=== PATIENT | male | born 1995 | race Caucasian/White ===

== ENCOUNTER 2017-07-03 00:36 | Emergency (ER) | payer OTHER ==
[2017-07-03 01:14] VITALS: BP 158/88; PULSE 77; TEMP 99.3; BMI 31.8
--- NOTE | 2017-07-03 01:25 | PDOC ---
History of Present Illness - General Chief Complaint: Pain Stated Complaint: THROAT SWELLING Time Seen by Provider: 07/03/17 01:14 History Source: Patient Exam Limitations: No Limitations - History of Present Illness Timing/Duration: other (x3d) Past History - Past Medical History Allergies/Adverse Reactions: Allergies Allergy/AdvReac Type Severity Reaction Status Date / Time No Known Allergies Allergy Verified 07/03/17 01:07 Home Medications: Ambulatory Orders Amoxicillin/Potassium Clav [Augmentin 875-125 Tablet] 1 each PO BID #20 tablet 11/25/15 Ibuprofen [Motrin -] 600 mg PO TID #21 tablet 11/25/15 COPD: No Other medical history: Pt denies - Suicide/Smoking/Psychosocial Hx Smoking History: Never smoked Have you smoked in the past 12 months: No Information on smoking cessation initiated: No Hx Alcohol Use: No Drug/Substance Use Hx: Yes (Marijuana) Substance Use Type: Marijuana *Physical Exam - Vital Signs Last Vital Signs Temp Pulse Resp BP Pulse Ox 99.3 F 77 18 158/88 99 07/03/17 01:08 07/03/17 01:08 07/03/17 01:08 07/03/17 01:08 07/03/17 01:08 *DC/Admit/Observation/Transfer Diagnosis at time of Disposition: Acute tonsillitis Qualifiers: Pharyngitis/tonsillitis etiology: unspecified etiology Qualified Code(s): J03.90 - Acute tonsillitis, unspecified - Discharge Dispostion Disposition: HOME Condition at time of disposition: Stable Admit: No - Referrals Referrals: Curt Chadwick MD [Staff Physician] - - Patient Instructions Printed Discharge Instructions: DI for Pharyngitis/Tonsillopharyngitis -- Adult Additional Instructions: Increase fluids You MUST follow up with ENT for tonsil removal Tylenol alternating with Motrin every 6 hours as needed for fever/pain Return to the ER for severe/persistent/worsening symptoms - Post Discharge Activity Forms/Work/School Notes: Back to Work
[2017-07-03] MEDS ORDERED: PENICILLIN G BENZATHINE 1,200,000 UNIT/2 ML PFS IM ONE (01:48)
[2017-07-03] MEDS ORDERED: DEXAMETHASONE SOD PHOSPHATE 10 MG/1 ML VIAL IM ONE (01:52)
[2017-07-03] MEDS ORDERED: DEXAMETHASONE SOD PHOSPHATE 10 MG/1 ML VIAL ONE (01:55)
[2017-07-03] MEDS ORDERED: PENICILLIN G BENZATHINE 2,400,000 UNIT/4 ML PFS ONE (01:55)
== END 2017-07-03 02:30 | disposition home or self-care (01) ==
LOC: JER 00:36
PROC: 3E0233Z Introduction of Anti-inflammatory into Muscle, Percutaneous Approach (ICD-10-PCS; principal; 2017-07-03)
PROC: 3E02329 Introduction of Other Anti-infective into Muscle, Percutaneous Approach (ICD-10-PCS; 2017-07-03)
DX: J03.90 Acute tonsillitis, unspecified (principal)
CPT/HCPCS: 87070; 87077; 87430; 99282-25

== ENCOUNTER 2021-02-27 05:00 | Emergency (ER) | payer OTHER ==
[2021-02-27 05:47] VITALS: BMI 32.5
[2021-02-27] MEDS ORDERED: KETOROLAC TROMETHAMINE 30 MG/1 ML VIAL IM ONE (06:43)
[2021-02-27] MEDS ORDERED: DEXAMETHASONE SOD PHOSPHATE 10 MG/1 ML VIAL IM ONE (06:43)
[2021-02-27] MEDS ORDERED: KETOROLAC TROMETHAMINE 30 MG/1 ML VIAL ONE (07:04)
[2021-02-27] MEDS ORDERED: DEXAMETHASONE SOD PHOSPHATE 10 MG/1 ML VIAL ONE (07:04)
[2021-02-27 07:25] VITALS: BP 122/77; PULSE 81; TEMP 99.3
[2021-02-27] MEDS ORDERED: PENICILLIN G BENZATHINE 1,200,000 UNIT/2 ML PFS IM ONE ×2 (08:09→08:13)
== END 2021-02-27 08:57 | disposition home or self-care (01) ==
LOC: JER 05:00
PROC: 3E023GC Introduction of Other Therapeutic Substance into Muscle, Percutaneous Approach (ICD-10-PCS; principal; 2021-02-27)
PROC: 3E0233Z Introduction of Anti-inflammatory into Muscle, Percutaneous Approach (ICD-10-PCS; 2021-02-27)
PROC: 3E02329 Introduction of Other Anti-infective into Muscle, Percutaneous Approach (ICD-10-PCS; 2021-02-27)
DX: J02.0 Streptococcal pharyngitis (principal)
CPT/HCPCS: 87880; 99284-25; J1100

== ENCOUNTER 2021-12-16 03:35 | Emergency (ER) | payer OTHER ==
[2021-12-16 04:27] VITALS: BP 114/78; PULSE 104; TEMP 98; BMI 33.5
== END 2021-12-16 05:49 | disposition home or self-care (01) ==
LOC: JER 03:35
DX: S29.011A Strain of muscle and tendon of front wall of thorax, initial encounter (principal); V49.40XA Driver injured in collision with unspecified motor vehicles in traffic accident, initial encounter
CPT/HCPCS: 71046-TC-FY; 93005; 93010; 99284-25

== ENCOUNTER 2022-08-31 15:12 | Emergency (ER) | payer OTHER ==
[2022-08-31 15:20] VITALS: TEMP 98.3; BMI 34.8
[2022-08-31] MEDS ORDERED: METOCLOPRAMIDE HCL INJECTION 10 MG/2 ML VIAL IVPUSH ONE (15:49)
[2022-08-31] MEDS ORDERED: FAMOTIDINE 20 MG/50 ML IVPB 20 MG/50 ML MG IVPB ONE ×2 (15:49→16:43)
[2022-08-31] MEDS ORDERED: SODIUM CHLORIDE 0.9% 500 ML INFUS.BAG IV ONE (15:49)
[2022-08-31] MEDS ORDERED: METOCLOPRAMIDE HCL INJECTION 10 MG/2 ML VIAL ONE (16:43)
[2022-08-31 17:21] LABS: BASO % 0.4 % (0-2.0); EOS % 1.8 % (0-4.5); HEMATOCRIT 41.8 % (35.4-49); HEMOGLOBIN 14.3 GM/dL (11.7-16.9); LYMPH % 5.7 % (8-40); MCH 29.8 pg (25.7-33.7); MCHC 34.2 g/dl (32.0-35.9); MEAN CELL VOLUME 87.3 fl (80-96); NEUT % 87.1 % (42.8-82.8); PLATELET COUNT 290 10^3/uL (134-434); RBC 4.78 M/mm3 (4.00-5.60); RDW 13.4 % (11.9-15.9); WHITE BLOOD COUNT 9.3 K/mm3 (4.0-10.0)
[2022-08-31 17:38] LABS: CALCIUM 9.4 mg/dL (8.5-10.1)
[2022-08-31 17:39] LABS: BLOOD UREA NITROGEN 8.2 mg/dL (7-18); MAGNESIUM 1.7 mg/dL (1.8-2.4)
[2022-08-31 17:42] LABS: CREATININE 0.8 mg/dL (0.55-1.3); PHOSPHOROUS 3.4 mg/dL (2.5-4.9)
[2022-08-31 17:43] LABS: BILIRUBIN,TOTAL 0.8 mg/dL (0.2-1)
[2022-08-31 18:37] VITALS: BP 134/82; PULSE 83; RESP 18
== END 2022-08-31 18:37 | disposition home or self-care (01) ==
LOC: JER 15:12
PROC: 3E033GC Introduction of Other Therapeutic Substance into Peripheral Vein, Percutaneous Approach (ICD-10-PCS; principal; 2022-08-31)
DX: R11.2 Nausea with vomiting, unspecified (principal); R19.7 Diarrhea, unspecified
CPT/HCPCS: 36415; 80053; 83690; 83735; 84100; 85025; 99284-25

== ENCOUNTER 2022-10-08 02:01 | Emergency (ER) | payer OTHER ==
[2022-10-08 02:10] VITALS: BP 157/104; PULSE 107; RESP 20; TEMP 97.7; BMI 35.5
[2022-10-08] MEDS ORDERED: DIPHTH,PERTUSS(ACELL),TET 0.5 ML DISP.SYRIN IM ONE ×2 (02:42→02:43)
[2022-10-08] MEDS ORDERED: ACETAMINOPHEN 325 MG TABLET (FP) ONE (02:43)
[2022-10-08] MEDS ORDERED: IBUPROFEN 400 MG TABLET (FP) PO ONE ×2 (02:43)
[2022-10-08] MEDS ORDERED: ACETAMINOPHEN 500 MG TABLET (FP) PO ONE (02:43)
== END 2022-10-08 03:01 | disposition home or self-care (01) ==
LOC: JER 02:01
PROC: 2W3HX1Z Immobilization of Left Thumb using Splint (ICD-10-PCS; principal; 2022-10-08)
DX: S60.932A Unspecified superficial injury of left thumb, initial encounter (principal); M79.645 Pain in left finger(s); W23.0XXA Caught, crushed, jammed, or pinched between moving objects, initial encounter
CPT/HCPCS: 73130-TC-RT-FY; 99283-25

== ENCOUNTER 2022-12-17 09:06 | Emergency (ER) | payer OTHER ==
[2022-12-17 09:12] VITALS: BP 134/86; PULSE 80; RESP 18; TEMP 98.2; BMI 34.8
[2022-12-17] MEDS ORDERED: ACETAMINOPHEN 500 MG TABLET (FP) PO ONE (09:58)
[2022-12-17] MEDS ORDERED: ACETAMINOPHEN 500 MG TABLET (FP) ONE (10:03)
== END 2022-12-17 11:42 | disposition home or self-care (01) ==
LOC: JER 09:06 → JERFT 09:06
DX: M79.672 Pain in left foot (principal); M25.572 Pain in left ankle and joints of left foot; S82.892A Other fracture of left lower leg, initial encounter for closed fracture; W18.40XA Slipping, tripping and stumbling without falling, unspecified, initial encounter
CPT/HCPCS: 73610-TC-LT-FY; 73630-TC-LT; 99283-25

== ENCOUNTER 2023-08-11 12:02 | Emergency (ER) | payer OTHER ==
[2023-08-11 12:28] VITALS: BP 144/84; PULSE 108; RESP 16; TEMP 98.7; BMI 34.8
[2023-08-11] MEDS ORDERED: MAG HYDROX/ALH/SMC/DPHA/LIDO 240 ML MOUTHWASH MM ONE (12:36)
[2023-08-11] MEDS ORDERED: DEXAMETHASONE 4 MG TABLET (FP) PO ONE (12:38)
[2023-08-11] MEDS ORDERED: DEXAMETHASONE 4 MG TABLET (FP) ONE (13:10)
[2023-08-11 14:25] LABS: THROAT:GRP A STREP NOT DETECTED (NOTDETECTED)
== END 2023-08-11 15:09 | disposition home or self-care (01) ==
LOC: FER 12:02
DX: J02.9 Acute pharyngitis, unspecified (principal); J35.1 Hypertrophy of tonsils; R13.10 Dysphagia, unspecified; Z20.822 Contact with and (suspected) exposure to COVID-19
CPT/HCPCS: 0241U-QW; 87070; 87651; 99283-25